=== PATIENT | female | born 1995 | race American Indian/Alaskan Native ===

== ENCOUNTER 2024-10-30 09:52 | Outpatient (AMB) | payer MEDICAID, SELFPAY ==
[2024-10-30 10:37] VITALS: BP 126/86; PULSE 64; RESP 14; TEMP 36.6; O2SAT 99; BMI 39.3
--- NOTE | 2024-10-30 10:37 | AMB.OBINITIA ---
Vital Signs 10/30/24 10:37 Height 1.6 m Height Method Stated Weight 100.811 kg Weight Measurement Method Standing Scale BMI 39.3 BP 126/86 H Blood Pressure Source Automatic Cuff Blood Pressure Location Left Upper Arm Position Sitting Respiration 14 Pulse 64 Pulse Source Monitor Temp 97.8 F Temp Source Oral Pulse Oximetry (%) 99 Oxygen Delivery Method Room Air Allergies/Home Meds Allergies & Medications Allergies Penicillins Allergy (Unknown, Verified 11/02/24 13:20) Medication Reconciliation pantoprazole 20 mg tablet,delayed release (Protonix) 20 mg PO QDAY #30 tabs 10/09/23 [Rx Confirmed 11/02/24] insulin lispro 100 unit/mL subcutaneous pen 15 unit subcut TID 10/30/24 [History Confirmed 11/02/24] labetalol 300 mg tablet 300 mg PO BID 10/30/24 [History Confirmed 11/02/24] magnesium oxide 400 mg PO BID #60 tabs 10/30/24 [Rx Confirmed 11/02/24] metformin 1,000 mg tablet 1,000 mg PO QDAY 10/30/24 [History Confirmed 11/02/24] ondansetron 4 mg disintegrating tablet 4 mg PO TID PRN nausea and vomiting 30 days #10 tabs 10/30/24 [Rx Confirmed 11/02/24] Intake Visit Data Collection New Patient or Established: Established Patient (seen at [facility] within 3 years) Reason for Visit:: INITIAL CARE Seen by Clinical Staff ONLY (RN/MA): No Data Entry Clerk Required: No Do You Feel Safe at Home: Yes Authorities Contacted: N/A PCP or OBGYN visit in last 3 months: Yes Hx Now: Yes Are you currently on any form of Control: No Last menstrual period: 09/22/24 Pain Present Currently: No Pain Scale Used: Rodriguez-Hinojosa/Numerical Pain scale:: 0 Smoking Status Smoking Status: Never smoker Questionnaires Covid-19 Vaccine Questionnaire Has patient been vacinated for Covid-19 Have you been vacinated for Covid-19: Yes PHQ-9 PHQ-2 Over the last 2 weeks, how often have you been bothered by any of the following problems? 1. Little interest or pleasure in doing things: not at all 2. Feeling down, depressed, or hopeless: not at all Total score: 0 PHQ-9 3. Trouble falling or staying asleep, or sleeping too much: Not at all 4. Feeling tired or having little energy: Not at all 5. Poor appetite or overeating: Not at all 6. Feeling bad about yourself - or that you are a failure or have let yourself or your family down: Not at all 7. Trouble concentrating on things, such as reading the newspaper or watching television: Not at all 8. Moving or speaking so slowly that other people could have noticed? - Or the opposite - being so fidgety or restless that you have been moving around a lot more than usual: not at all 9. Thoughts that you would be better off or of hurting yourself in some way: Not at all Total score: 0 Source: Developed by Drs. Mian Hernandez, Mehreen Juarez, Adolfo Cheema and colleagues, with an educational nilsa from [employer]. Depression screen completed yes Social History Living Situation History Marital Status: Lives With: Family Housing: House Tobacco History Smoking Status: Never smoker Second Hand Smoke Exposure: No Alcohol History Alcohol Intake: Never Domestic Abuse History Do You Feel Safe at Home: Yes History of Present Illness HPI Narrative Patient is a 30-year-old female transferring care from [facility] for care due to a high-risk in the first trimester and type 2 diabetes mellitus with hyperglycemia. She presents with ongoing vaginal bleeding and a history of recent emergency department visits. Patient was initially seen at [facility] on October 06, 2024, for vaginal bleeding at approximately 5 weeks gestation. An ultrasound showed a gestational sac without a pole. Her beta hCG was 1240 at that visit, with the most recent on October 16 being 7088. Patient reports current light vaginal bleeding, noticeable only when wiping. She also mentions a recent episode of vomiting blood after eating breakfast. Regarding diabetes management, patient admits to previous poor self-care, resulting in a high hemoglobin A1c of 11.5. She is currently on insulin therapy, using both fast-acting (20-25 units, adjusted based on blood sugar levels) and long-acting insulin (12 units in the morning). Patient was diagnosed with diabetes at age 24 or 25. Patient has one child, a [id number], delivered via emergency at [facility]. This is her second (G2 T0 L1), currently at 29 weeks gestation and considered high-risk. Patient has an allergy to Parcaine, which was aggravated at 5 weeks of . Her current symptoms include light vaginal bleeding and a recent episode of vomiting blood. 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: Past Medical History Past Medical History: Yes Hx Hypertension, No Hx Renal Disease and Yes Hx Diabetes Mellitus Type 2 OB Initial Visit Menstrual History Menstrual reliability: definite Flow: normal Menstrual regularity: regular Monthly: Yes Age at menarche: 14 On control pills at conception: No Associated symptoms (LMP): Reports nausea, fatigue, breast tenderness, irritability and bloating OB History : 2 Para: 1 # of Living Children: 1 Delivery History 1st : Child's name: GABE date: 09/09/22 sex: male Delivery type: History of depression before or after : No Infection History & Risk Evaluation History of STDs: none Genetic Screening & History Genetic Screening/Teratology Counseling - Includes patient, baby's father, or anyone in either family with: 1. Patient's age 35 years or older as of estimated date of delivery: No 2. Thalassemia (Croatian, Bhutanese, Mediterranean, or Background); MCV less than 80: No 3. Neural Tube Defect (Meningomyelocele, Spina Bifida, or Anencephaly): No 4. Congenital Heart Defect: No 5. Down Syndrome: No 6. Luisito-Sachs (Ashkenazi Jew, Cajun, Kiswahili [place] Islander): No 7. Willie Disease (Ashkenazi Jew): No 8. Familial Dysautonomia (Ashkenazi Jew): No 9. Sickle Cell Disease or Trait (): No 10. Hemophilia or other blood disorders: No 11. Muscular Dystrophy: No 12. Cystic Fibrosis: No 13. Des's Chorea: No 14. Mental Retardation/Autism: No 15. Other inherited genetic or chromosomal disorder: No 16. Maternal Metabolic Disorder (EG,TYPE 1 Diabetes, PKU): No 17. Patient or baby's father had a child with defects not listed above: No 18. Recurrent loss or a stillbirth: No 19. Medications (including supplements, vitamins, herbs or otc drugs)/illicit/recreational drugs/alcohol since last menstrual period: No 20. Any other: No Infection History 1. Live with someone with TB or exposed to TB: No 2. Rash or viral illness since last menstrual period: No 3. Hepatitis B,C: No Other (see comments) Source: [employer] Review of Systems Constitutional Constitutional: Reports fatigue Gastrointestinal Gastrointestinal: Reports bloating and Reports nausea Psychiatric Psychiatric: Reports irritability Endocrine Endocrine: Reports fatigue Exam General General Appearance: alert, in no apparent distress and healthy appearing Head Head exam: atraumatic Neck Neck exam: Present normal inspection and trachea midline Chest Chest inspection: Present normal inspection and symmetric chest wall rise External exam: Present normal external exam; Absent tenderness Neuro Neurological exam: Present oriented X3 Psych Psychiatric exam: Present normal affect and normal mood Results Objective Laboratory: Diagnostic Test Results and Labs: - Beta hCG: - 10/06/2024: 1240 - 10/12/2024: 2907 - 10/16/2024: 7088 - Fasting glucose (10/06/2024): 178 - Hemoglobin A1c (10/06/2024): 11.5 - Ultrasound (10/06/2024): Gestational sac without pole, consistent with 5 weeks gestation Office Procedures OB Clinic LOC & Office Proc's Nursing/Assessment Patient Status: Established Patient OB Clinic Nursing Assessment: Medication Reconciliation, Update PMH in EMR and Vital Signs OB Clinic Coordination of Care: Complex Care and Chronic Disease 1-5, Consent,records obtained, informed consent, Education Simp Pt/Fam, Lab and Imaging orders, Results/Orders obtained and Staff clarify orders Special Needs: Heart tones Established Patient Charge Established Patient Point Assignment: 135 Established Patient Point Charge: EP Level 4 (120-155) Assessment & Plan Diagnosis / Problem List (1) Threatened miscarriage: Status: Acute Plan High-risk : - Estimated at 5 weeks gestation based on previous ultrasound. - Serial hCG levels monitored, most recent value on October 16 at 7088. - Today's bedside ultrasound showed uterine sac with early development, no detectable heartbeat. - Patient reports current intermittent vaginal bleeding. - Order stat ultrasound for detailed assessment. - Obtain repeat serum hCG level. - Schedule follow-up appointment in 1 week. Type 2 Diabetes Mellitus with hyperglycemia: - Continue current insulin regimen: - Long-acting insulin 12 units SC every morning - Fast-acting insulin SC as needed based on blood glucose levels (typically 20-25 units) - Educate patient on importance of strict glycemic control during . - Consider referral to endocrinology for diabetes management during .
== END 2024-10-30 11:16 | disposition home or self-care (01) ==
LOC: HODSOBC 09:52
PROVIDERS: PCP Physician Assistant; Referring Provider Physician Assistant; Supervising Provider Obstetrics & Gynecology; Visit Provider Obstetrics & Gynecology
DX: O20.0 Threatened abortion (principal); Z3A.01 Less than 8 weeks gestation of pregnancy; O24.111 Pre-existing type 2 diabetes mellitus, in pregnancy, first trimester; Z79.4 Long term (current) use of insulin; Z88.0 Allergy status to penicillin; Z88.8 Allergy status to other drugs, medicaments and biological substances
CPT/HCPCS: 99214; G0463

== ENCOUNTER 2024-10-30 19:31 | Emergency (ER) | payer MEDICAID, SELFPAY ==
[2024-10-30 19:33] VITALS: BP 141/91; PULSE 70; RESP 18; TEMP 36.6; O2SAT 97; BMI 39.3
--- NOTE | 2024-10-30 19:54 | PD.EDVAGBL ---
ED OB Contraction Preg RMI/HPI General Chief complaint: Vaginal Bleeding Stated complaint: VAGINAL BLEEDING Time Seen by Provider: 10/30/24 19:58 Arrival date/time: 10/30/24 19:31 RME / HPI RME / HPI Narrative: This section includes all my notes and documentations, including HPI, PE, and ED course. Robert Burrows MD HPI: 29yo female who is ~8 weeks gestation presents to the ED for a chief complaint of vaginal bleeding. Patient states she has had intermittent vaginal bleeding for several days but worsened today. LMP was 08/24/24. No other complaints. ROS: All negative except as documented in HPI. Physical Exam: General: Alert and oriented. No acute distress when remaining still. Eyes: Conjunctivae and lids clear. ENT: No nasal congestion. Neck: Supple. Heart: RRR. Lungs: No respiratory distress. Good air movement. No rhonchi, wheezing, rales. Abdomen: Soft and nontender. Normal bowel sounds. No distension. No rebound or guarding. Back: No CVA tenderness. Skin: Warm and dry. Neuro: Alert and oriented X 3. I reviewed all diagnostic test results. My review of the transvaginal US report is 6 1/7 week IUP with no cardiac activity. Blood tests remarkable for beta-hCG 83673. UA unremarkable. At this point, diagnoses include threatened miscarriage. Based on my best medical judgment, made decision no further evaluation or treatment indicated at this time. Patient understands and agrees to the discharge instructions customized and printed, see below. Discharge Instructions from Dr. Burrows printed for you: 1.? After evaluation, your is inside the uterus but there is no heart activity. We may be too early. 2.? Based on ultrasound today, gestational age is 6 1/7 weeks. 3.? Only time will tell what will happen. If your symptoms worsen, you can have a miscarriage. If your symptoms stop, you can have successful . 4.? If you do have a miscarriage, we won't be able to save your baby. Under 20-24 weeks, we can't save the baby. 5.? No sexual activity until cleared by a doctor taking care of you. 6.? See a private doctor on 11/02/2024 for recheck. Ask to review all test results and official radiology reports, to make sure you receive all necessary follow-ups and monitoring. Your hCG ( hormone level) was 69389.? This doubles every 2 to 3 days in normal . Wait for repeat ultrasound for another 2 weeks. 7.? Seek immediate medical care with intolerable pain, extremely heavy vaginal bleeding (soaking more than 3 pads per hour), or with any concerns. Robert Burrows MD Related Data Home Medications ?Medication ?Instructions ?Recorded ?Confirmed insulin lispro 100 unit/mL 15 unit subcut TID 10/30/24 10/30/24 subcutaneous pen labetalol 300 mg tablet 300 mg PO BID 10/30/24 10/30/24 metformin 1,000 mg tablet 1,000 mg PO QDAY 10/30/24 10/30/24 Previous Rx's ?Medication ?Instructions ?Recorded pantoprazole 20 mg tablet,delayed 20 mg PO QDAY #30 tabs 10/09/23 release (Protonix) magnesium oxide 400 mg PO BID #60 tabs 10/30/24 ondansetron 4 mg disintegrating 4 mg PO TID PRN nausea and 10/30/24 tablet vomiting 30 days #10 tabs Allergies Allergy/AdvReac Type Severity Reaction Status Date / Time Penicillins Allergy Unknown Verified 10/30/24 19:32 Review of Systems Review of Systems Systems Reviewed: All systems reviewed, normal except as documented Past Medical History Past Medical History CARDIAC: Positive Hypertension; Negative Congestive Heart Failure RESPIRATORY: Negative Chronic Obstructive Pulmonary Disease (COPD) GENITOURINARY: Negative Renal Disease ENDOCRINE: Positive Diabetes Mellitus Type 2; Negative Diabetes Mellitus Type 1 Social History SMOKING STATUS: Never smoker SECOND HAND EXPOSURE: No ED Exam Narrative Physical exam: As noted in HPI. Course Quality Measures none Orders Category Date Time Status US OB transvaginal Stat Exams 10/30/24 19:58 Completed BMP [Basic Metabolic Panel] Stat Lab 10/30/24 20:10 Completed Beta HCG,Quantitative Stat Lab 10/30/24 20:10 Completed CBC Stat Lab 10/30/24 20:10 Completed Free T4 (Free Thyroxine) Stat Lab 10/30/24 20:10 Completed Magnesium Stat Lab 10/30/24 20:10 Completed TSH [Thyroid Stimulating Hormone] Stat Lab 10/30/24 20:10 Completed Type and Screen Stat Lab 10/30/24 20:10 Completed UA, C/S IF [Urinalysis, C/S if Indicated] Stat Lab 10/30/24 21:43 Completed Vital Signs Vital signs: Vital Signs Temperature 97.9 F 10/30/24 19:33 Pulse Rate 70 10/30/24 19:33 Respiratory Rate 18 10/30/24 19:33 Blood Pressure 141/91 H 10/30/24 19:33 Pulse Oximetry (%) 97 10/30/24 19:33 Oxygen Delivery Method Room Air 10/30/24 19:33 Vaginal Bleeding MDM Narrative MDM Narrative: 29yo female who is ~8 weeks gestation presents to the ED for a chief complaint of vaginal bleeding. Patient states she has had intermittent vaginal bleeding for several days but worsened today. LMP was 08/24/24. No other complaints. Patient data External records reviewed:: [facility] previous records (Per chart review, patient was seen here on 10/09/23 for cholelithiasis.) Clinical information provided by:: patient Social determinants that could affect healthcare access:: none Patient has the following chronic illnesses:: HTN, DM How is presenting disease/condition affected by chronic disease/condition?: uneffected by Evaluation data The following diagnostics were reviewed and interpreted by me:: lab results and radiology exam(s) Lab and/or radiology exams considered but not ordered:: none Interpretation Summary: I reviewed all diagnostic test results. My review of the transvaginal US report is 6 04/24 week IUP with no cardiac activity. Blood tests remarkable for beta-hCG 72836. UA unremarkable. Medications / Prescriptions Medications or Prescriptions considered but not ordered:: none Medication administrations:: none Consultations Consultation(s) initiated? (list below): No Diagnosis Vaginal Bleeding Differential Diagnosis: missed , threatened , dysfunctional uterine bleeding, menometrorrhagia, incomplete , ectopic without intrauterine and vaginal bleeding Most likely diagnosis given after review of the tests above:: Threatened miscarriage Admission Indicated Admission indicated?: not indicated Explain why admission is indicated or not indicated:: With no condition needing emergent intervention, there was no indication for admission. Admission Request Was there a request for admission?: No Disposition Plan Disposition Plan: Discharge Discharge Attestation Discharge Attestation: The patient and all family members were given an opportunity to ask questions and understood the discharge instructions. Discharge instructions specifically effects, indications for sooner follow up or return to the emergency department, and the expected course of current diagnosis. Patient condition: Stable Discharge Plan Plan Patient Disposition: HOME (Self Care) Prescriptions/Referrals Prescriptions/Med Rec: New magnesium oxide 400 mg magnesium tablet 400 mg PO BID Qty: 60 1RF ondansetron 4 mg tablet,disintegrating 4 mg PO TID PRN (Reason: nausea and vomiting) 30 Days Qty: 10 0RF No Action metformin 1,000 mg tablet 1,000 mg PO QDAY labetalol 300 mg tablet 300 mg PO BID insulin lispro 100 unit/mL insulin pen 15 unit subcut TID pantoprazole [Protonix] 20 mg tablet,delayed release (DR/EC) 20 mg PO QDAY Qty: 30 1RF Referrals: No Primary/Family,Physician [Primary Care Provider] - In 1 week Problem List Clinical Impression: Threatened miscarriage Patient/Caregiver Discharge Instructions Discharge Activity: activity as tolerated Education Materials: ED Possible Miscarriage ... Additional Instructions: Discharge Instructions from Dr. Burrows printed for you: 1.? After evaluation, your is inside the uterus but there is no heart activity. We may be too early. 2.? Based on ultrasound today, gestational age is 6 1/7 weeks. 3.? Only time will tell what will happen. If your symptoms worsen, you can have a miscarriage. If your symptoms stop, you can have successful . 4.? If you do have a miscarriage, we won't be able to save your baby. Under 20-24 weeks, we can't save the baby. 5.? No sexual activity until cleared by a doctor taking care of you. 6.? See a private doctor on 11/02/2024 for recheck. Ask to review all test results and official radiology reports, to make sure you receive all necessary follow-ups and monitoring. Your hCG ( hormone level) was 16513.? This doubles every 2 to 3 days in normal . Wait for repeat ultrasound for another 2 weeks. 7.? Seek immediate medical care with intolerable pain, extremely heavy vaginal bleeding (soaking more than 3 pads per hour), or with any concerns. Print Language: Lithuanian Stand Alone Forms: Margarita Award Info., Patient Portal Info Letter
--- NOTE | 2024-10-30 19:58 | XR_ITS ---
Examination: OB Transvaginal ultrasound of the pelvis, complete Technique: Transvaginal sonographic images pelvis performed using cotto scale imaging Exam date and time: October 30, 2024 2133 hours INDICATIONS: Heavy vaginal bleeding and cramping beginning 3 days ago. FINDINGS: Uterus 10.8 cm, pole 0.4 cm corresponds to 6 weeks 1 day gestational age No cardiac motion Right ovary 3.0 cm arterial flow with small amounts of free fluid Left ovary 3.2 cm arterial flow IMPRESSION: Intrauterine gestation corresponding to 6 weeks 1 day gestational age No cardiac activity Recommend short-term follow-up to exclude demise.
[2024-10-30 20:24] LABS: Basophils # (Auto) 0.0 Thou/mm3 (0.0-0.2); Basophils % (Auto) 0 % (0-2.5); Eosinophils # (Auto) 0.2 Thou/mm3 (0.0-0.5); Eosinophils % (Auto) 2 % (0-10); Hematocrit 37.6 % (36.0-46.0); Hemoglobin 13.7 g/dL (12.0-16.0); Immature Granulocytes Auto 0.03 Thou/mm3 (0.00-0.00); Lymphocytes # (Auto) 2.8 Thou/mm3 (1.0-4.8); Lymphocytes % (Auto) 30 % (10-50); Mean Corpuscular HGB Conc 36.4 g/dl (31.0-37.0); Mean Corpuscular Hemoglobin 31.4 pg (25.0-35.0); Mean Corpuscular Volume 86 fL (80-100); Monocytes # (Auto) 0.5 Thou/mm3 (0.0-0.8); Monocytes % (Auto) 6 % (0-12); Neutrophils # (Auto) 5.7 Thou/mm3 (1.8-7.7); Neutrophils % (Auto) 61 % (37-80); Nucleated Red Blood Cell # 0.00 Thou/mm3 (0.00-0.00); Nucleated Red Blood Cell % 0 /100 WBC (0); Platelet Count 238 Thou/mm3 (140-440); RDW Standard Deviation 37.9 fL (36.4-46.3); Red Blood Count 4.37 Miln/mm3 (4.00-5.20); White Blood Count 9.4 Thou/mm3 (3.6-11.0)
[2024-10-30 20:50] LABS: Anion Gap 11 (7-16); BUN/Creatinine Ratio 10 Ratio (12-20); Blood Urea Nitrogen 7 mg/dL (9-23); Calcium 10.0 mg/dL (8.3-10.6); Carbon Dioxide 24.2 mMol/L (20.0-31.0); Chloride 105 mMol/L (98-107); Creatinine (Component) 0.7 mg/dL (0.6-1.3); Estimated Creatinine Clearance 135.5 mL/min (>60); Free T4 (Free Thyroxine) 0.91 ng/dL (0.89-1.76); Glucose 141 mg/dL (74-106); Magnesium 1.4 mg/dL (1.6-2.6); Osmolality,Calculated 279 (275-295); Potassium 4.0 mMol/L (3.4-5.1); Sodium 140 mMol/L (136-145); Thyroid Stimulating Hormone 2.72 uIU/mL (0.55-4.78); eGFR > 60 See Note
[2024-10-30 21:16] LABS: Beta HCG,Quantitative 12692 mIU/mL (<5.0)
[2024-10-30 21:59] LABS: Collection Type, Urine Clean Catch
[2024-10-30 22:19] LABS: Bacteria,Urine Rare; Bilirubin,Urine Negative (Negative); Blood,Urine 3+ (Negative); Clarity,Urine Clear (Clear/Hazy); Color,Urine Colorless (Lt Yel-Yel); Culture Indicated,Urine Not Indicated; Glucose, Urine Negative (Negative); Ketones,Urine Negative (Negative); Leukocyte Esterase,Urine Negative (Negative); Nitrite,Urine Negative (Negative); PH,Urine 6.0 (5.0-7.0); Protein,Urine Trace (Neg - Trace); RBC,Urine 12 /hpf (0-3); Specific Gravity,Urine 1.006 (1.001-1.035); Squamous Epithelial Cell,Urine 1 /hpf (0-5); Urobilinogen,Urine Negative mg/dL (0.0-1.0); WBC,Urine 1 /hpf (0-5)
[2024-10-30 22:49] VITALS: BP 120/79; PULSE 74; RESP 18; TEMP 36.9; O2SAT 99
== END 2024-10-30 22:50 | disposition home or self-care (01) ==
PROVIDERS: Emergency Provider Emergency Medicine
DX: O20.0 Threatened abortion (principal); Z3A.08 8 weeks gestation of pregnancy
CPT/HCPCS: 36415; 76817; 80048; 81001; 83735; 84439; 84443; 84702; 85025; 86850; 86900; 86901; 99284

== ENCOUNTER → 2024-10-30 | Outpatient (CLI) | payer MEDICAID, SELFPAY ==
--- NOTE | 2024-10-30 | XR_ITS ---
Examination: Complete OB ultrasound, less than 14 weeks, transabdominal Date and time of exam: October 30, 2024 1143 hours INDICATIONS: Onset vaginal bleeding beginning 3 days ago Technique: Obstetrical ultrasound images less than 14 weeks performed via transabdominal imaging Findings: A normal shaped single intrauterine gestation is present in the uterus. Uterus 9.9 cm, CRL 0.5 cm corresponds to 6 weeks 2 days gestational age No cardiac motion Subchorionic hemorrhage described but not measured on these images Right ovary 2.8 cm arterial flow Left ovary 3.1 cm arterial flow IMPRESSION: Intrauterine gestation corresponding to 6 weeks 2 days gestational age No cardiac motion Recommend short-term follow-up to exclude embryonic demise
[2024-10-30 13:26] LABS: Alanine Aminotransferase 62 U/L (10-49); Albumin, Serum 4.6 gm/dL (3.5-5.0); Albumin/Globulin Ratio 1.8 (1.2-2.2); Alkaline Phosphatase 63 U/L (46-116); Anion Gap 12 (7-16); Aspartate Amino Transferase 37 U/L (0-34); BUN/Creatinine Ratio 9 Ratio (12-20); Bilirubin,Total 0.6 mg/dL (0.3-1.2); Blood Urea Nitrogen 6 mg/dL (9-23); Calcium 9.6 mg/dL (8.3-10.6); Calcium (Corrected) 9.6 mg/dL (8.5-10.1); Carbon Dioxide 23.7 mMol/L (20.0-31.0); Chloride 104 mMol/L (98-107); Creatinine (Component) 0.7 mg/dL (0.6-1.3); Globulin 2.5 gm/dL (2.3-3.5); Glucose 193 mg/dL (74-106); Osmolality,Calculated 282 (275-295); Potassium 4.4 mMol/L (3.4-5.1); Sodium 140 mMol/L (136-145); Total Protein 7.1 gm/dL (5.7-8.2); eGFR > 60 See Note
[2024-10-30 13:45] LABS: Beta HCG,Quantitative 13621 mIU/mL (<5.0)
== END | disposition home or self-care (01) ==
LOC: CDIM 11:30 → COPL 12:01 → CDIM 11-09 16:30
PROVIDERS: PCP Physician Assistant; Referring Provider Obstetrics & Gynecology; Visit Provider Obstetrics & Gynecology
DX: O36.80X0 Pregnancy with inconclusive fetal viability, not applicable or unspecified (principal); O20.0 Threatened abortion; Z3A.01 Less than 8 weeks gestation of pregnancy
CPT/HCPCS: 36415; 76801; 80053; 84702

== ENCOUNTER 2024-11-02 13:07 | Outpatient (AMB) | payer MEDICAID, SELFPAY ==
[2024-11-02 13:18] VITALS: BP 142/89; PULSE 75; RESP 17; TEMP 36.5; O2SAT 98; BMI 38.8
--- NOTE | 2024-11-02 13:18 | OBCLNT_ITS ---
Vital Signs 11/02/24 13:18 Height 1.6 m Height Method Measured Weight 99.507 kg Weight Measurement Method Standing Scale BMI 38.8 BP 142/89 H Blood Pressure Source Automatic Cuff Blood Pressure Location Right Upper Arm Position Sitting Respiration 17 Pulse 75 Pulse Source Monitor Temp 97.7 F Temp Source Temporal Artery Scan Pulse Oximetry (%) 98 Oxygen Delivery Method Room Air Allergies/Home Meds Allergies & Medications Allergies Penicillins Allergy (Unknown, Verified 11/02/24 13:20) Medication Reconciliation pantoprazole 20 mg tablet,delayed release (Protonix) 20 mg PO QDAY #30 tabs 10/09/23 [Rx Confirmed 11/02/24] insulin lispro 100 unit/mL subcutaneous pen 15 unit subcut TID 10/30/24 [History Confirmed 11/02/24] labetalol 300 mg tablet 300 mg PO BID 10/30/24 [History Confirmed 11/02/24] magnesium oxide 400 mg PO BID #60 tabs 10/30/24 [Rx Confirmed 11/02/24] metformin 1,000 mg tablet 1,000 mg PO QDAY 10/30/24 [History Confirmed 11/02/24] ondansetron 4 mg disintegrating tablet 4 mg PO TID PRN nausea and vomiting 30 days #10 tabs 10/30/24 [Rx Confirmed 11/02/24] Intake Visit Data Collection New Patient or Established: Established Patient (seen at [facility] within 3 years) Reason for Visit:: OBC\ER FOLLOW UP Consent obtained for Telemed Visit: No Seen by Clinical Staff ONLY (RN/MA): No Weigh Machine Operator Required: No Do You Feel Safe at Home: Yes Authorities Contacted: N/A PCP or OBGYN visit in last 3 months: Yes Date of Last PCP or OBGYN visit: 11/09/24 Hx Now: No Are you currently on any form of Control: No Pain Present Currently: No Pain Scale Used: Rodriguez-Hinojosa/Numerical Pain scale:: 0 Smoking Status Smoking Status: Never smoker Questionnaires Covid-19 Vaccine Questionnaire Has patient been vacinated for Covid-19 Have you been vacinated for Covid-19: Yes PHQ-9 PHQ-2 Over the last 2 weeks, how often have you been bothered by any of the following problems? 1. Little interest or pleasure in doing things: not at all PHQ-9 8. Moving or speaking so slowly that other people could have noticed? - Or the opposite - being so fidgety or restless that you have been moving around a lot more than usual: not at all Source: Developed by Drs. Mian Hernandez, Mehreen Juarez, Adolfo Cheema and colleagues, with an educational nilsa from [employer]. 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 She currently describes her bleeding as feeling like a normal period, indicating a decrease in intensity since the ER visit. The patient denies any current passage of tissue or significant bleeding. She is a female patient with poorly controlled type 2 diabetes mellitus (A1c 11.5), presenting for short-term follow-up of a questionable viability in early . An ultrasound performed on October 30 showed an intrauterine at 6 weeks and 1 day gestation with no cardiac activity, suggesting a non-viable . The patient's experience in the ER, where she passed tissue, appears to confirm the diagnosis of a miscarriage. The patient's poorly controlled diabetes (A1c 11.5) is noted as a potential contributing factor to the miscarriage. [facility]. Obstetric history: A1 L0. Current status: Not (recent miscarriage). Recent resulted in miscarriage, with patient passing tissue in the ER on October 30, 2024. [facility] and [place] [facility] care from a doctor there. Diagnostic Test Results and Labs: - Serum HCG (10-30-2024): 7000 - Hemoglobin A1c (10-30-2024): 11.5 - Ultrasound (10-30-2024): Intrauterine gestational sac present. Gestational age: 6 weeks 1 day. No cardiac activity detected. Normal ovaries with arterial flow. Exam General General Appearance: alert, in no apparent distress and healthy appearing Head Head exam: atraumatic Neck Neck exam: Present normal inspection and trachea midline Chest Chest inspection: Present normal inspection and symmetric chest wall rise External exam: Present normal external exam; Absent tenderness Neuro Neurological exam: Present oriented X3 Psych Psychiatric exam: Present normal affect and normal mood Office Procedures OB Clinic LOC & Office Proc's Nursing/Assessment Patient Status: Established Patient OB Clinic Nursing Assessment: Medication Reconciliation, Update PMH in EMR and Vital Signs OB Clinic Coordination of Care: Complex Care and Chronic Disease 1-5, Consent ,records obtained, informed consent, Education Simp Pt/Fam and 4+ Authorizations needed Established Patient Charge Established Patient Point Assignment: 100 Established Patient Point Charge: EP Level 3 (80-115) Assessment & Plan Diagnosis / Problem List (1) Threatened miscarriage: Status: Acute Plan Early loss: - Ultrasound on 10/30/2024 showed intrauterine gestational sac at 6 weeks 1 day with no cardiac activity. - Patient reports passing tissue, consistent with completed miscarriage. - Current bleeding has slowed to like a normal period. - Order follow-up ultrasound for 11/08/2024 or 11/09/2024 to confirm complete evacuation of products of conception. - Patient to return for ultrasound results and further management if needed. Type 2 diabetes mellitus, poorly controlled: - Recent A1c of 11.5. - Hyperglycemia may have contributed to the loss. - Advised patient to [facility]. - Recommended working on gradually improving glycemic control.
== END 2024-11-02 14:09 | disposition home or self-care (01) ==
PROVIDERS: Supervising Provider Obstetrics & Gynecology; Visit Provider Obstetrics & Gynecology
DX: O20.0 Threatened abortion (principal); O24.111 Pre-existing type 2 diabetes mellitus, in pregnancy, first trimester; O10.911 Unspecified pre-existing hypertension complicating pregnancy, first trimester; Z3A.01 Less than 8 weeks gestation of pregnancy; Z79.84 Long term (current) use of oral hypoglycemic drugs; Z79.4 Long term (current) use of insulin; Z79.899 Other long term (current) drug therapy
CPT/HCPCS: 99213; G0463

== ENCOUNTER → 2024-11-07 | Outpatient (CLI) | payer MEDICAID, SELFPAY ==
--- NOTE | 2024-11-07 | XR_ITS ---
Examination: Complete OB ultrasound, less than 14 weeks, transabdominal Date and time of exam: November 07, 2024 1204 hours INDICATIONS: Post miscarriage October 30, 2024 Technique: Obstetrical ultrasound images less than 14 weeks performed via transabdominal imaging Findings: Uterus 10.1 cm with thickened heterogeneous endometrial stripe 17 mm Right ovary 3.0 cm arterial flow Left ovary 5.2 cm arterial flow IMPRESSION: Positive for retained process of conception
== END | disposition home or self-care (01) ==
PROVIDERS: PCP Physician Assistant; Referring Provider Obstetrics & Gynecology; Visit Provider Obstetrics & Gynecology
DX: O02.1 Missed abortion (principal)
CPT/HCPCS: 76801

== ENCOUNTER 2024-11-14 11:17 | Outpatient (AMB) | payer MEDICAID, SELFPAY ==
--- NOTE | 2024-11-14 11:18 | AMB.GYNCLNOT ---
Allergies/Home Meds Allergies & Medications Allergies Penicillins Allergy (Unknown, Verified 11/14/24 11:18) Medication Reconciliation pantoprazole 20 mg tablet,delayed release (Protonix) 20 mg PO QDAY #30 tabs 10/09/23 [Rx Confirmed 11/14/24] insulin lispro 100 unit/mL subcutaneous pen 15 unit subcut TID 10/30/24 [History Confirmed 11/14/24] labetalol 300 mg tablet 300 mg PO BID 10/30/24 [History Confirmed 11/14/24] magnesium oxide 400 mg PO BID #60 tabs 10/30/24 [Rx Confirmed 11/14/24] metformin 1,000 mg tablet 1,000 mg PO QDAY 10/30/24 [History Confirmed 11/14/24] Intake Visit Data Collection New Patient or Established: Established Patient (seen at [facility] within 3 years) Reason for Visit:: DISCUSS ULTRASOUND RESULTS Consent obtained for Telemed Visit: Yes Seen by Clinical Staff ONLY (RN/MA): No Administrative Support Clerk Required: No Do You Feel Safe at Home: Yes Authorities Contacted: N/A PCP or OBGYN visit in last 3 months: Yes Are you currently on any form of Control: No Pain Present Currently: No Pain Scale Used: Rodriguez-Hinojosa/Numerical Pain scale:: 0 Smoking Status Smoking Status: Never smoker 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 1. Little interest or pleasure in doing things: not at all 2. Feeling down, depressed, or hopeless: not at all Total score: 0 PHQ-9 3. Trouble falling or staying asleep, or sleeping too much: Not at all 4. Feeling tired or having little energy: Not at all 5. Poor appetite or overeating: Not at all 6. Feeling bad about yourself - or that you are a failure or have let yourself or your family down: Not at all 7. Trouble concentrating on things, such as reading the newspaper or watching television: Not at all 8. Moving or speaking so slowly that other people could have noticed? - Or the opposite - being so fidgety or restless that you have been moving around a lot more than usual: not at all 9. Thoughts that you would be better off or of hurting yourself in some way: Not at all Total score: 0 Source: Developed by Drs. Mian Hernandez, Mehreen Juarez, Adolfo Cheema and colleagues, with an educational nilsa from [employer]. Depression screen completed yes Social History Living Situation History Lives With: Family Housing: House Tobacco History Smoking Status: Never smoker Second Hand Smoke Exposure: No Alcohol History Alcohol Intake: Never Domestic Abuse History Do You Feel Safe at Home: Yes History of Present Illness HPI Narrative Patient presents for televisit for review of results Last ultrasound was positive for concerns for retained products of conception. Patient states that she passed tissues at home. History is currently consistent with complete Office Procedures OB Clinic LOC & Office Proc's Nursing/Assessment Patient Status: Established Patient OB Clinic Nursing Assessment: Medication Reconciliation and Update PMH in EMR OB Clinic Coordination of Care: Complex Care and Chronic Disease 1-5, Consent,records obtained, informed consent, Education Simp Pt/Fam, Lab and Imaging orders, Results/Orders obtained and Staff clarify orders Established Patient Charge Established Patient Point Assignment: 90 Telehealth If patient is seen using Teleconference methods, complete New/Est section, but DO NOT cipriano points only cipriano the correct Telemed visit type Telemed Phone/Video with patient at home & Dr,PA,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 She elected to proceed with expectant management for now. ER block precautions were reviewed. Follow-up as needed.
== END 2024-11-14 11:50 | disposition home or self-care (01) ==
LOC: HODSOBC 11:17
PROVIDERS: Supervising Provider Obstetrics & Gynecology; Visit Provider Obstetrics & Gynecology
DX: O03.4 Incomplete spontaneous abortion without complication (principal); I10 Essential (primary) hypertension; E11.9 Type 2 diabetes mellitus without complications; Z79.4 Long term (current) use of insulin; Z79.84 Long term (current) use of oral hypoglycemic drugs; Z79.899 Other long term (current) drug therapy; Z88.0 Allergy status to penicillin
CPT/HCPCS: 99212; G0463

== ENCOUNTER → 2024-11-22 | Outpatient (CLI) | payer MEDICAID, SELFPAY ==
--- NOTE | 2024-11-22 13:51 | XR_ITS ---
Examination: Complete OB ultrasound, less than 14 weeks, transabdominal Date and time of exam: November 22, 2024 1421 hours INDICATIONS: Miscarriage October 30, 2024 with vaginal bleeding. Technique: Obstetrical ultrasound images less than 14 weeks performed via transabdominal imaging Findings: A normal shaped single intrauterine gestation is present in the uterus. Uterus 8.2 cm endometrial stripe is thickened 26 mm Right ovary obscured by bowel gas Left ovary 3.5 cm arterial flow 16mm cyst Ultrasonographic survey of visible and placental structures unremarkable. Amniotic fluid volume appears appropriate for this estimated gestational age. Impression: Suspicious for retained products of conception, recommend transvaginal pelvic sonography follow-up
== END | disposition home or self-care (01) ==
PROVIDERS: PCP Physician Assistant; Referring Provider Obstetrics & Gynecology; Visit Provider Obstetrics & Gynecology
DX: N94.89 Other specified conditions associated with female genital organs and menstrual cycle (principal); O03.4 Incomplete spontaneous abortion without complication
CPT/HCPCS: 76801